=== PATIENT | male | born 2000 | race Caucasian/White ===

== ENCOUNTER 2023-12-20 14:43 | Outpatient (AMB) | payer OTHER, SELFPAY ==
[2023-12-20 14:49] VITALS: BP 110/62; PULSE 78; O2SAT 98; BMI 29.1
--- NOTE | 2023-12-20 14:49 | AM.OFFWIN_ITS ---
Intake Vital Signs 12/20/23 14:49 Height 6 ft 2 in Weight 227 lb BMI 29.1 BP 110/62 Blood Pressure Location Rt brachial Position Sitting Pulse 78 Pulse Source Pulse Oximeter Pulse Oximetry (%) 98 Oxygen Delivery Method Room Air Intake Visit Reasons: Sinus Pressure/ Headache Intake Note: Patient is here today for sinus pressure, congestion, headaches, no fever or chills, or body aches. OTC not helps. Home Covid was negative. Patient Tobacco Use Status: Never used Tobacco Dumper Mold Cleaner Required: No Home Care Music Therapist: Not Required per policy Accompanied by: Self / Same As Patient Allergies ibuprofen [From Advil] Allergy (Intermediate, Verified 12/20/23 14:59) Rash Medication List - Last Reconciled 12/20/23 by Nilda Ware CNP No Known Home Meds Do you need a note to return to daycare/school/sports/work: No HPI HPI Comments History of Present Illness Details 26-year-old new old male presents with c omplaints of post nasal drip, nasal congestion, and frontal sinus pain and pressure congestion for about a year. He notes reports headaches and bilat ear pressure for the past 2 months. No cough, sore throat, fever, chills, body aches, fatigue, or weakness. He was seen by an ENT last summer. Was given a nasal spray to dry out the back of my nose and as advised to follow up with worsening symptoms; however, he has not followed up. He took Claritin D without improvement. He takes Tylenol as needed for pain. He denies sick contacts and notes he had a negative covid test today. He is a student at [employer]. He does not currently have a primary care provider. [facility] Social History Patient Tobacco Use Status: Never used Tobacco Review of Systems Const Details: Const Denies chills, Denies fatigue, Denies fever(s), Denies headache(s) and Denies weakness ENT Reports as per HPI Resp Denies cough, Denies dyspnea, Denies wheezing and Denies other (shortness of breath) Cardio Denies chest pain, Denies lightheadedness, Denies dyspnea and Denies other (palpitations) Neuro Denies dizziness, Denies headache(s), Denies numbness, Denies tingling and Denies weakness Psych Denies anxiety, Denies depression, Denies memory?loss Endo Denies fatigue Aller/Immun Denies wheezing Physical Exam Vital Signs: Last Vital Signs Pulse 78 12/20/23 14:49 BP 110/62 12/20/23 14:49 Pulse Ox 98 12/20/23 14:49 Oxygen Delivery Method Room Air 12/20/23 14:49 BMI result Body Mass Index 29.1 Const Other: Const General: well developed; No acute distress Nutritional Appearance: well nourished Orientation/consciousness: patient oriented x3 HEENT Head is normocephalic Bilateral ear canal and TM are normal Nasal turbinates with mild erythema oropharynx is pink and moist Sinuses are nontender with palpation No auricular or cervical lymphadenopathy Eyes General: appearance normal, both eyes and all related structures Pupils: Equal, round and reactive pupils present EOM: EOMs intact bilaterally Resp Effort & Inspection: normal respiratory effort Auscultation: clear to auscultation bilaterally Cardio Rate: regular rate Rhythm: regular rhythm Heart sounds: S1 normal heart sound present, S2 normal heart sound present, no gallops, no murmurs and no rubs Bruits: no abdominal aortic bruits and no carotid bruits Neuro General: patient oriented x3 and gait normal, no focal neuro deficit Cranial nerves: Yes Equal, round and reactive pupils present Psych Affect: normal affect Assessment & Plan Assessment & Plan (1) Allergic rhinitis: Code(s): J30.9 - Allergic rhinitis, unspecified Plan: Zyrtec and Flonase ordered. Take as prescribed May take Tylenol as needed for pain or discomfort Follow-up with ENT as planned Encouraged to establish with a PCP Return with worsening or new symptoms Verbalized understanding and agreed with treatment plan Medications: New cetirizine (Zyrtec) 10 mg PO DAILY 30 tabs 1RF 30 days fluticasone propionate 50 mcg/actuation (Flonase Allergy Relief) administer into each nostril 1 spray intranasal Q12H 16 grams 1RF Coding Level of Care Code New Pt Level 3 (71160) Diagnoses Allergic rhinitis J30.9
== END 2023-12-20 15:21 | disposition home or self-care (01) ==
LOC: HO.HMGWIW 14:43
DX: J30.9 Allergic rhinitis, unspecified (principal)
CPT/HCPCS: 99203